=== PATIENT | female | born 2000 | race Caucasian/White ===

== ENCOUNTER 2024-11-09 10:44 | Emergency (ER) | payer BC, MEDICAID ==
[~2024-11-09] VITALS: Ht 165.1 cm; Wt 73.0 kg
[2024-11-09 10:46] VITALS: O2SAT 100
[2024-11-09 11:33] LABS: BASOPHILS % 0.4 % (0.0-2.0); EOSINOPHILS % 1.1 % (0.0-5.0); HEMATOCRIT. 41.3 % (36.0-48.0); HEMOGLOBIN. 13.5 g/dL (12.0-16.0); LYMPHOCYTES % 37.9 % (20.0-50.0); MEAN CORPUSCULAR HEMOGLOBIN 28.7 pg (28.0-32.0); MEAN CORPUSCULAR HGB CONC 32.7 g/dL (31.0-37.0); MEAN CORPUSCULAR VOLUME 87.9 fL (81.0-99.0); MEAN PLATELET VOLUME 7.3 fl (7.4-10.4); MONOCYTES % 7.2 % (2.0-8.0); NEUTROPHILS % 53.4 % (40.0-76.0); PLATELET 356 x1000/uL (130-400); RED CELL DISTRIBUTION WIDTH 13.4 % (11.6-14.6); WHITE BLOOD COUNT 7.5 x1000/uL (4.5-11.0)
[2024-11-09] MEDS: SODIUM CHLORIDE 0.9% 1,000 ML IV ONE (11:46)
[2024-11-09 11:47] LABS: CHLORIDE 107 mEq/L (98-107); POTASSIUM 3.2 mEq/L (3.5-5.1); SODIUM 140 mEq/L (136-145)
[2024-11-09 11:48] LABS: CALCIUM 9.2 mg/dL (8.7-10.4); CARBON DIOXIDE 21 mEq/L (21-32)
[2024-11-09 11:53] LABS: CREATININE 0.6 mg/dL (0.6-1.0); GLUCOSE 102 mg/dL (70-105); UREA NITROGEN BLOOD 9 mg/dL (9-23)
[2024-11-09 11:55] LABS: ALANINE AMINOTRANSFERASE 24 IU/L (10-49); ALBUMIN 4.5 g/dL (3.2-4.8); ASPARTATE AMINOTRANSFERASE 21 IU/L (<34); BILIRUBIN DIRECT 0.2 mg/dL (<=3.0); BILIRUBIN TOTAL 0.8 mg/dL (0.1-1.0); PROTEIN TOTAL 7.8 g/dL (6.0-8.3)
[2024-11-09 11:57] LABS: TROPONIN I HIGH SENSITIVITY < 4 ng/L (3.0-34)
[2024-11-09 11:58] LABS: ETHANOL BLOOD < 10 mg/dL (<10)
[2024-11-09 12:10] LABS: INR 0.9; PROTHROMBIN TIME 9.8 sec (9.6-11.0)
[2024-11-09 12:11] LABS: CLARITY URINE CLEAR (CLEAR); COLOR URINE YELLOW (YELLOW); GLUCOSE URINE NEGATIVE (NEGATIVE); KETONES URINE NEGATIVE (NEGATIVE); LEUKOCYTE ESTERASE URINE NEGATIVE (NEGATIVE); NITRITE URINE NEGATIVE (NEGATIVE); OCCULT BLOOD URINE NEGATIVE (NEGATIVE); PROTEIN URINE NEGATIVE (NEGATIVE); SPECIFIC GRAVITY URINE 1.003 (1.005-1.030); UROBILINOGEN URINE 0.2 E.U./dL (0.2-1.0)
[2024-11-09] MEDS: ONDANSETRON HCL 4MG/2ML INJ IV ONE (12:12)
[2024-11-09] MEDS: FAMOTIDINE 20MG/2ML VIAL IV ONE (12:12)
[2024-11-09 12:16] LABS: HCG SCREEN NEGATIVE
[2024-11-09] MEDS: POTASSIUM CHLORIDE 20MEQ/PACKET PO NR (12:16)
[2024-11-09 13:37] VITALS: PULSE 87; RESP 18; TEMP 36.7
[2024-11-09 13:45] VITALS: BP 168/84
== END 2024-11-09 13:49 | disposition home or self-care (01) ==
LOC: ER 10:44
DX: K80.20 Calculus of gallbladder without cholecystitis without obstruction (principal); K76.0 Fatty (change of) liver, not elsewhere classified; J45.909 Unspecified asthma, uncomplicated; Z88.0 Allergy status to penicillin; Z91.041 Radiographic dye allergy status; Z88.8 Allergy status to other drugs, medicaments and biological substances
CPT/HCPCS: 80076; 80048; 81003; 80320; 84703; 83690; 85025; 85610; 84484; 36415; 76705; 96360; 96361; 99284; J3490; J2405; J7030; Z7610; A4606; G0480

== ENCOUNTER 2025-07-17 15:58 | Emergency (ER) | payer MEDICAID ==
[~2025-07-17] VITALS: Ht 162.6 cm; Wt 63.0 kg
[2025-07-17 16:03] VITALS: O2SAT 99
[2025-07-17] MEDS ORDERED: ACETAMINOPHEN 1000MG/100ML 100 ML IV ONE (16:15)
[2025-07-17 16:40] VITALS: TEMP 36.8
[2025-07-17] MEDS: SODIUM CHLORIDE 0.9% 1,000 ML IV ONE (17:00)
[2025-07-17 17:15] LABS: *AMPHETAMINES SCREEN URINE NEGATIVE (NEGATIVE); *BARBITURATES SCREEN URINE NEGATIVE (NEGATIVE); *BENZODIAZEPINES SCREEN URINE NEGATIVE (NEGATIVE); *COCAINE SCREEN URINE NEGATIVE (NEGATIVE); CANNABINOID URINE SCREEN NEGATIVE (NEGATIVE); ECSTASY MDMA SCREEN URINE NEGATIVE (NEGATIVE); METHADONE URINE SCREEN NEGATIVE (NEGATIVE); OPIATES URINE SCREEN NEGATIVE (NEGATIVE); PHENCYCLIDINE URINE SCREEN NEGATIVE (NEGATIVE)
[2025-07-17 18:41] LABS: BASOPHILS % 0.5 % (0.0-2.0); EOSINOPHILS % 0.1 % (0.0-5.0); HEMATOCRIT. 35.7 % (36.0-48.0); HEMOGLOBIN. 11.7 g/dL (12.0-16.0); LYMPHOCYTES % 23.2 % (20.0-50.0); MEAN PLATELET VOLUME 8.0 fl (7.4-10.4); MONOCYTES % 8.0 % (2.0-8.0); NEUTROPHILS % 68.2 % (40.0-76.0); PLATELET 283 x1000/uL (130-400); RED BLOOD CELL COUNT 4.23 mill/uL (4.2-5.4); RED CELL DISTRIBUTION WIDTH 14.1 % (11.6-14.6)
[2025-07-17 18:55] LABS: CREATININE 0.5 mg/dL (0.6-1.0)
[2025-07-17 18:56] LABS: TROPONIN I HIGH SENSITIVITY < 4 ng/L (3.0-34); UREA NITROGEN BLOOD 7 mg/dL (9-23)
[2025-07-17 18:57] LABS: ASPARTATE AMINOTRANSFERASE 15 IU/L (<34); BILIRUBIN DIRECT 0.4 mg/dL (<=3.0)
[2025-07-17 18:58] LABS: BILIRUBIN TOTAL 1.5 mg/dL (0.1-1.0); HCG SCREEN NEGATIVE; PROTEIN TOTAL 7.0 g/dL (6.0-8.3)
[2025-07-17 19:11] VITALS: TEMP 98.24
[2025-07-17 20:10] VITALS: BP 112/61; PULSE 80; RESP 16; O2SAT 97
[2025-08-01] MEDS ORDERED: ACET-2708 MT (00:34)
[2025-08-01] MEDS ORDERED: ONDA4TAB50 MT (00:34)
[2025-08-01] MEDS ORDERED: ALBU18HF2 IH (00:34)
[2025-08-01] MEDS ORDERED: CEPH500C2 MT (00:34)
[2025-08-04] MEDS ORDERED: HYDR-459 MT (09:19)
[2025-08-20] MEDS ORDERED: LEVO-65 MT (16:21)
[2025-08-22] MEDS ORDERED: FLUT9.9S BOTHNSTRLS (16:12)
[2025-09-09] MEDS ORDERED: BUDE6HFA INH (18:19)
[2025-09-09] MEDS ORDERED: P20 MT (18:19)
[2025-09-11] MEDS ORDERED: METH4TAB95 MT (06:40)
[2025-09-11] MEDS ORDERED: ALBU18HF2 IH (06:40)
[2025-09-11] MEDS ORDERED: IPRA3AMP9 HHN (14:04)
[2025-09-16] MEDS ORDERED: DOXY100T2 MT (13:49)
[2025-09-16] MEDS ORDERED: PSEU120T56 MT (13:49)
== END 2025-07-17 20:15 | disposition left against medical advice (07) ==
LOC: ER 15:58 → EDBEDREQ 18:27 → EDBEDREQTM 18:27 → ER 20:15 → CMPBEDREQ 07-18 07:50
DX: R55 Syncope and collapse (principal); F41.9 Anxiety disorder, unspecified; D64.9 Anemia, unspecified; J45.909 Unspecified asthma, uncomplicated; R51.9 Headache, unspecified; R06.02 Shortness of breath; Z88.0 Allergy status to penicillin; Z88.8 Allergy status to other drugs, medicaments and biological substances; Z79.899 Other long term (current) drug therapy
CPT/HCPCS: 99285; 70450; 96360; 71045; 80076; 80305; 80048; 81025; 84703; 83880; 83690; 85025; 84484; 36415; 70486; 93005; G0480; J7030; 80320; A4606; J0131

== ENCOUNTER 2025-07-23 15:01 | Inpatient (IN) | payer MEDICAID ==
[~2025-07-23] VITALS: Ht 147.3 cm; Wt 74.4 kg
[2025-07-23 15:09] VITALS: O2SAT 100
[2025-07-23] MEDS ORDERED: ONDANSETRON HCL 4MG/2ML INJ IV ONE (17:00)
[2025-07-23] MEDS: SODIUM CHLORIDE 0.9% 1,000 ML IV ONE (17:00)
[2025-07-23 17:52] LABS: BASOPHILS % 0.5 % (0.0-2.0); EOSINOPHILS % 0.3 % (0.0-5.0); HEMATOCRIT. 36.5 % (36.0-48.0); HEMOGLOBIN. 12.1 g/dL (12.0-16.0); LYMPHOCYTES % 32.2 % (20.0-50.0); MEAN PLATELET VOLUME 7.5 fl (7.4-10.4); MONOCYTES % 8.5 % (2.0-8.0); NEUTROPHILS % 58.5 % (40.0-76.0); PLATELET 312 x1000/uL (130-400); RED BLOOD CELL COUNT 4.32 mill/uL (4.2-5.4); RED CELL DISTRIBUTION WIDTH 13.9 % (11.6-14.6)
[2025-07-23 18:01] LABS: INR 1.0
[2025-07-23 18:04] LABS: HCG SCREEN NEGATIVE
[2025-07-23 18:07] LABS: CREATININE 0.6 mg/dL (0.6-1.0); TROPONIN I HIGH SENSITIVITY < 4 ng/L (3.0-34); UREA NITROGEN BLOOD 7 mg/dL (9-23)
[2025-07-23 18:09] LABS: ASPARTATE AMINOTRANSFERASE 14 IU/L (<34); BILIRUBIN DIRECT 0.4 mg/dL (<=3.0); BILIRUBIN TOTAL 1.2 mg/dL (0.1-1.0); PROTEIN TOTAL 7.0 g/dL (6.0-8.3)
[2025-07-23] MEDS: ONDANSETRON 4MG ODT PO ONE (18:44)
[2025-07-23 18:57] LABS: CLARITY URINE CLOUDY (CLEAR); COLOR URINE DARK YELLOW (YELLOW); GLUCOSE URINE NEGATIVE (NEGATIVE); KETONES URINE TRACE (NEGATIVE); LEUKOCYTE ESTERASE URINE 1+ (NEGATIVE); NITRITE URINE NEGATIVE (NEGATIVE); OCCULT BLOOD URINE NEGATIVE (NEGATIVE); PH URINE 5.5 (4.5-8.0); PROTEIN URINE TRACE (NEGATIVE); SPECIFIC GRAVITY URINE 1.024 (1.005-1.030); UROBILINOGEN URINE 1.0 E.U./dL (0.2-1.0)
[2025-07-23] MEDS: MECLIZINE 25MG TABLET PO ONE ×2 (19:42→20:30)
[2025-07-23 19:46] LABS: BACTERIA URINE 3+; RBC URINE 0-2 /hpf (0-2); SQUAMOUS EPITHELIAL CELL URINE 1+ /lpf (RARE/1+)
[2025-07-23 20:09] LABS: TROPONIN I HIGH SENSITIVITY < 4 ng/L (3.0-34)
[2025-07-23] MEDS: SULFAMETHOXAZOLE/TRIMETHOPRIM 800/160MG TABLET PO ONE (21:37)
[2025-07-24 06:09] VITALS: BP 102/64; PULSE 68; RESP 18; TEMP 37.1964
[2025-07-24] MEDS ORDERED: HYDROCODONE/ACETAMINOPHEN 5/325MG TABLET PO PRN (07:45)
[2025-07-24] MEDS ORDERED: ACETAMINOPHEN 325MG TABLET PO PRN (07:45)
[2025-07-24 08:00] VITALS: BP 111/43; PULSE 84; RESP 18; TEMP 36.1; O2SAT 99
[2025-07-24] MEDS ORDERED: NALOXONE HCL 0.4MG/ML VIAL IV PRN (08:00)
[2025-07-24] MEDS: CEFTRIAXONE 1GM/50ML 50 ML IV SCH (09:00)
[2025-07-24] MEDS ORDERED: KETOROLAC 30MG/ML VIAL IV PRN (09:30)
[2025-07-24] MEDS: SODIUM CHLORIDE 0.9% 1,000 ML IV SCH (09:40)
[2025-07-24] MEDS: POTASSIUM CHLORIDE 20MEQ TABLET SR PO NR (09:50)
[2025-07-24 12:00] VITALS: BP 93/57; PULSE 76; RESP 16; TEMP 36.3; O2SAT 99
[2025-07-24 12:31] LABS: HEPATITIS C AB NON REACTIVE (Neg) (Negative)
[2025-07-24 15:41] LABS: *AMPHETAMINES SCREEN URINE NEGATIVE (NEGATIVE); *BARBITURATES SCREEN URINE NEGATIVE (NEGATIVE); *BENZODIAZEPINES SCREEN URINE NEGATIVE (NEGATIVE); *COCAINE SCREEN URINE NEGATIVE (NEGATIVE); CANNABINOID URINE SCREEN NEGATIVE (NEGATIVE); ECSTASY MDMA SCREEN URINE NEGATIVE (NEGATIVE); METHADONE URINE SCREEN NEGATIVE (NEGATIVE); OPIATES URINE SCREEN NEGATIVE (NEGATIVE); PHENCYCLIDINE URINE SCREEN NEGATIVE (NEGATIVE)
[2025-07-24] MEDS: MECLIZINE 25MG TABLET PO PRN (15:46)
[2025-07-24] MEDS: LEVOFLOXACIN 500MG TABLET PO SCH (15:49)
[2025-07-24 16:00] VITALS: BP 122/75; PULSE 79; RESP 19; TEMP 36.2; O2SAT 99
[2025-07-25] VITALS: BP 91/53; PULSE 73; RESP 17; TEMP 36.4; O2SAT 99
[2025-07-25 04:00] VITALS: BP 91/44; PULSE 69; RESP 17; TEMP 36.2; O2SAT 98
[2025-07-25 08:00] VITALS: BP 101/63; PULSE 82; RESP 19; TEMP 36.8; O2SAT 99
[2025-07-25 12:00] VITALS: BP 103/63; PULSE 97; RESP 18; TEMP 36.2; O2SAT 100
[2025-07-25 16:00] VITALS: BP 118/70; PULSE 89; RESP 19; TEMP 36.8; O2SAT 100
[2025-08-01] MEDS ORDERED: ALBU18HF2 IH (00:34)
[2025-08-01] MEDS ORDERED: ACET-2708 MT (00:34)
[2025-08-01] MEDS ORDERED: ONDA4TAB50 MT (00:34)
[2025-08-01] MEDS ORDERED: CEPH500C2 MT (00:34)
== END 2025-07-25 17:05 | disposition home or self-care (01) | DRG 48 ==
LOC: ER 15:01 → 5WST 20:28 → EDBEDREQ 20:34 → EDBEDREQTM 20:34 → ENRESERV 20:51
PROVIDERS: ADMIT Internal Medicine; ATTEND Internal Medicine
DX: G90.89 Other disorders of autonomic nervous system (principal); E66.9 Obesity, unspecified; N39.0 Urinary tract infection, site not specified; J45.909 Unspecified asthma, uncomplicated; E87.6 Hypokalemia; Z88.0 Allergy status to penicillin; Z68.34 Body mass index [BMI] 34.0-34.9, adult
CPT/HCPCS: 36415; 71045; 76705; 80048; 80076; 80305; 81003; 83735; 84484; 84703; 85025; 85379; 86705; 87340; 93005; 96374; 99285; J7030; J8597; Q0162

== ENCOUNTER 2025-09-01 18:34 | Emergency (ER) | payer MEDICAID ==
[~2025-09-01] VITALS: Ht 147.3 cm; Wt 63.0 kg
[~2025-09-01 18:34] MED LIST: ACET-2708 MT; ALBU18HF2 IH; FLUT9.9S BOTHNSTRLS; HYDR-459 MT; LEVO-65 MT; ONDA4TAB50 MT
[2025-09-01 18:35] VITALS: O2SAT 99
[2025-09-01] MEDS: IBUPROFEN 400MG TABLET PO ONE (19:23)
[2025-09-01] MEDS: MECLIZINE 25MG TABLET PO ONE (19:23)
[2025-09-01] MEDS: ACETAMINOPHEN 325MG TABLET PO ONE (19:23)
[2025-09-01 19:41] LABS: CLARITY URINE CLEAR (CLEAR); GLUCOSE URINE NEGATIVE (NEGATIVE); KETONES URINE 1+ (NEGATIVE); LEUKOCYTE ESTERASE URINE 1+ (NEGATIVE); NITRITE URINE NEGATIVE (NEGATIVE); OCCULT BLOOD URINE NEGATIVE (NEGATIVE); PH URINE 6.5 (4.5-8.0); PROTEIN URINE NEGATIVE (NEGATIVE); SPECIFIC GRAVITY URINE 1.011 (1.005-1.030); UROBILINOGEN URINE 0.2 E.U./dL (0.2-1.0)
[2025-09-01 19:55] LABS: *AMPHETAMINES SCREEN URINE NEGATIVE (NEGATIVE); *BARBITURATES SCREEN URINE NEGATIVE (NEGATIVE); *BENZODIAZEPINES SCREEN URINE NEGATIVE (NEGATIVE); *COCAINE SCREEN URINE NEGATIVE (NEGATIVE); CANNABINOID URINE SCREEN NEGATIVE (NEGATIVE); ECSTASY MDMA SCREEN URINE NEGATIVE (NEGATIVE); METHADONE URINE SCREEN NEGATIVE (NEGATIVE); OPIATES URINE SCREEN NEGATIVE (NEGATIVE); PHENCYCLIDINE URINE SCREEN NEGATIVE (NEGATIVE)
[2025-09-01 20:00] LABS: BASOPHILS % 0.5 % (0.0-2.0); EOSINOPHILS % 0.4 % (0.0-5.0); HEMATOCRIT. 33.7 % (36.0-48.0); HEMOGLOBIN. 11.1 g/dL (12.0-16.0); LYMPHOCYTES % 22.8 % (20.0-50.0); MEAN PLATELET VOLUME 7.4 fl (7.4-10.4); MONOCYTES % 6.9 % (2.0-8.0); NEUTROPHILS % 69.4 % (40.0-76.0); PLATELET 282 x1000/uL (130-400); RED BLOOD CELL COUNT 4.00 mill/uL (4.2-5.4); RED CELL DISTRIBUTION WIDTH 13.3 % (11.6-14.6)
[2025-09-01 20:12] LABS: COLOR URINE STRAW (YELLOW)
[2025-09-01 20:13] LABS: BACTERIA URINE TRACE; RBC URINE NONE SEEN /hpf (0-2); SQUAMOUS EPITHELIAL CELL URINE 1+ /lpf (RARE/1+); WBC URINE 0-2 /hpf (0-2)
[2025-09-01 20:14] LABS: CREATININE 0.5 mg/dL (0.6-1.0); HCG SCREEN NEGATIVE; UREA NITROGEN BLOOD < 5 mg/dL (9-23)
[2025-09-01 20:15] LABS: PROTEIN TOTAL 6.5 g/dL (6.0-8.3)
[2025-09-01 20:16] LABS: ASPARTATE AMINOTRANSFERASE 15 IU/L (<34); PHOSPHORUS 3.0 mg/dL (2.5-4.9)
[2025-09-01 20:17] LABS: BILIRUBIN TOTAL 0.9 mg/dL (0.1-1.0)
[2025-09-01 20:18] LABS: T4 FREE 1.00 ng/dL (0.89-1.76)
[2025-09-01] MEDS: POTASSIUM CHLORIDE 20MEQ TABLET SR PO ONE (20:47)
[2025-09-01] MEDS: MAGNESIUM OXIDE 400MG TABLET PO SCH (20:47)
[2025-09-01 21:04] VITALS: BP 116/56; PULSE 81; RESP 16; TEMP 37.3; O2SAT 98
[2025-09-09] MEDS ORDERED: BUDE6HFA INH (18:19)
[2025-09-09] MEDS ORDERED: P20 MT (18:19)
[2025-09-11] MEDS ORDERED: ALBU18HF2 IH (06:40)
[2025-09-11] MEDS ORDERED: METH4TAB95 MT (06:40)
[2025-09-11] MEDS ORDERED: IPRA3AMP9 HHN (14:04)
== END 2025-09-01 21:15 | disposition home or self-care (01) ==
LOC: ER 18:34
DX: R42 Dizziness and giddiness (principal); R51.9 Headache, unspecified; J45.909 Unspecified asthma, uncomplicated; G90.89 Other disorders of autonomic nervous system; Z79.899 Other long term (current) drug therapy; Z88.0 Allergy status to penicillin; Z88.8 Allergy status to other drugs, medicaments and biological substances
CPT/HCPCS: 80053; 80305; 81003; 81025; 80320; 84703; 84439; 83735; 84100; 84443; 85025; 36415; 93005; 99284; J8597; G0480